=== PATIENT | female | born 1980 | race Caucasian/White ===

== ENCOUNTER 2016-07-30 18:12 | Emergency (ER) | payer BC, OTHER ==
[~2016-07-30] VITALS: Ht 160 cm; Wt 63.0 kg
[~2016-07-30 18:12] MED LIST: ASCO500T3 PO; DIAZ-165 PO; HYDR-5688 PO; LSN/2025 PO; PLEXUS EASE PO
[2016-07-30 18:20] VITALS: TEMP 37.1; Ht 160 cm; Wt 63.0 kg
[2016-07-30 20:13] LABS: BASO % 0.4 %; BASO ABS # 0.03 K/uL (0-0.2); COMPLETE YES; EOS % 3.1 %; HEMATOCRIT 39.4 % (37-47); IG% 0.1 %; LYMPH % 19.4 %; LYMPH ABS # 1.43 K/uL (1.2-3.4); MEAN CELL VOLUME 90.6 fL (80-100); MEAN CORPUSCULAR HEMOGLOBIN 30.3 pg (25-34); MEAN CORPUSCULAR HGB CONC 33.5 g/dl (32-36); MEAN PLATELET VOLUME 10.4 fL (7.4-10.4); MONO % 12.6 %; NEUT % 64.4 %; PLATELET COUNT 230 K/uL (130-400); RED BLOOD COUNT 4.35 M/uL (4.2-5.4); WHITE BLOOD COUNT 7.36 K/uL (4.8-10.8)
[2016-07-30] MEDS ORDERED: HYDROmorphone INJ 1 MG/ML SYR IV STA (20:13)
[2016-07-30] MEDS ORDERED: ONDANSETRON INJ 2 MG/ML 2 ML VIAL IV STA (20:13)
[2016-07-30] MEDS ORDERED: SODIUM CHLORIDE 0.9% 1000ML 1,000 ML IV STA (20:13)
[2016-07-30 20:25] LABS: URINE APPEARANCE CLOUDY (CLEAR); URINE BILIRUBIN NEG (NEG); URINE COLOR YELLOW; URINE EPITHELIAL CELL AUTO >30 /lpf (0-5); URINE NITRITE NEG (NEG); URINE PH 5.5 (4.5-7.5); URINE SPECIFIC GRAVITY 1.029 (1.000-1.030); UROBILINOGEN NEG (NEG); ZZUR CULT IF INDIC CLEAN CATCH YES
[2016-07-30 20:30] LABS: MANUAL MICROSCOPIC REQUIRED? NO; REVIEW REQ? NO
[2016-07-30] MEDS ORDERED: CHOL100010 PO (20:35)
[2016-07-30] MEDS ORDERED: LSN/10125 PO (20:35)
[2016-07-30] MEDS ORDERED: PRZ/40 PO (20:35)
[2016-07-30 20:44] LABS: CALCIUM 8.7 mg/dl (8.5-10.1); CREATININE 0.59 mg/dl (0.60-1.20); POTASSIUM 3.4 mmol/L (3.5-5.1)
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
--- NOTE | 2016-07-30 21:34 | DIAGNOSTIC IMAGING REPORT ---
ABDOMINAL ULTRASOUND, RIGHT UPPER QUADRANT HISTORY: Right upper quadrant abdominal pain.. COMPARISON: Thoracic spine CT 07/08/2015. FINDINGS: Pancreas: The pancreas demonstrates a normal echotexture. The main pancreatic duct is top normal in diameter measuring 3 mm. Liver: The liver is echogenic consistent with fatty change. Gallbladder: No gallbladder wall thickening. No gallstones. CBD: 4 mm. Right kidney: No hydronephrosis. There is thinning of the cortex and increased echogenicity with and the medullary pyramids. There is a 3 mm punctate stone within the kidney. IMPRESSION: 1. Normal gallbladder. No gallstones. 2. Hepatic steatosis. 3. Right renal cortical thinning with increased medullary echogenicity. There is also a 3 mm punctate stone within the right kidney. This raises the possibility of medullary nephrocalcinosis. There is no hydronephrosis. Electronically signed by: Ab Napoles M.D. 07/30/2016 9:33 PM Dictated Date/Time: 07/30/2016 9:30 PM
[2016-07-30 22:18] VITALS: BP 115/72; PULSE 82; O2SAT 99
[2016-07-30] MEDS ORDERED: CEPH500C PO (22:24)
[2016-07-30] MEDS ORDERED: OXYCODONE IR HOME PACK PO ONE (22:30)
[2016-07-30] MEDS ORDERED: CEPHALEXIN MONOHYDRATE 250 MG CAP PO ONE (22:30)
== END 2016-07-30 22:47 | disposition home or self-care (01) ==
LOC: C.EDB 18:13 → C.EDA 22:47
DX: R19.7 Diarrhea, unspecified (principal); R10.11 Right upper quadrant pain; I10 Essential (primary) hypertension; R82.71 Bacteriuria; Z87.891 Personal history of nicotine dependence

== ENCOUNTER 2016-08-20 16:46 | Emergency (ER) | payer BC, OTHER ==
[~2016-08-20] VITALS: Ht 160 cm; Wt 65.5 kg
[~2016-08-20 16:46] MED LIST changes: +CHOL100010 PO; -HYDR-5688 PO; +LSN/10125 PO; -LSN/2025 PO; +PRZ/40 PO
[2016-08-20 16:51] VITALS: TEMP 37; Ht 160 cm; Wt 65.5 kg
[2016-08-20] MEDS ORDERED: CEPHALEXIN 500MG HOME PACK 1 EA BTL PO ONE (17:00)
[2016-08-20] MEDS ORDERED: SULFAMETHOXAZOLE/TRIMETHOPRIM DS 800/160MG TAB PO STA (17:00)
[2016-08-20] MEDS ORDERED: SEPTRA DS HOME PACK 1 EA VIAL PO ONE (17:00)
[2016-08-20] MEDS ORDERED: LIDOCAINE/EPINEPHRINE 1% 20 ML VIAL INFIL STA (17:00)
[2016-08-20] MEDS ORDERED: CEPHALEXIN MONOHYDRATE 250 MG CAP PO STA (17:00)
[2016-08-20] MEDS ORDERED: IBUPROFEN 600 MG TAB ONE (17:01)
[2016-08-20] MEDS ORDERED: IBUPROFEN 600 MG TAB PO STA (17:04)
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
[2016-08-20] MEDS ORDERED: SULF800T23 PO (17:19)
[2016-08-20] MEDS ORDERED: CEPH500C PO (17:19)
[2016-08-20] MEDS ORDERED: MAGN250T3 PO (17:28)
[2016-08-20] MEDS ORDERED: WLLSR100 PO (17:28)
[2016-08-20 17:39] VITALS: BP 143/89; PULSE 87; O2SAT 96
== END 2016-08-20 17:41 | disposition home or self-care (01) ==
LOC: C.EDB 16:47 → C.EDC 17:41
DX: L02.416 Cutaneous abscess of left lower limb (principal); I10 Essential (primary) hypertension; Z87.442 Personal history of urinary calculi; Z87.01 Personal history of pneumonia (recurrent); Z83.3 Family history of diabetes mellitus; Z82.49 Family history of ischemic heart disease and other diseases of the circulatory system; Z87.891 Personal history of nicotine dependence; Z79.899 Other long term (current) drug therapy

== ENCOUNTER 2016-08-22 16:45 | Emergency (ER) | payer BC, OTHER ==
[~2016-08-22] VITALS: Ht 160 cm; Wt 66.0 kg
[~2016-08-22 16:45] MED LIST changes: +CEPH500C PO; -LSN/10125 PO; +MAGN250T3 PO; +SULF800T23 PO; +WLLSR100 PO
[2016-08-22 16:49] VITALS: BP 166/107; PULSE 64; TEMP 37; O2SAT 96; Ht 160 cm; Wt 66.0 kg
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
== END 2016-08-22 17:09 | disposition home or self-care (01) ==
LOC: C.EDB 16:46 → C.EDD 17:09
DX: Z48.00 Encounter for change or removal of nonsurgical wound dressing (principal); L02.416 Cutaneous abscess of left lower limb; Z87.891 Personal history of nicotine dependence; I10 Essential (primary) hypertension; Z87.01 Personal history of pneumonia (recurrent)

== ENCOUNTER 2018-01-02 19:57 | Emergency (ER) | payer BC ==
[~2018-01-02] VITALS: Ht 160 cm; Wt 74.6 kg
[~2018-01-02 19:57] MED LIST changes: +BSP/5 PO; -CEPH500C PO; -CHOL100010 PO; +FLUO60TA4 PO; +LISI-461 PO; +LORA-741 PO; -PRZ/40 PO; -SULF800T23 PO; -WLLSR100 PO
[2018-01-02 20:00] VITALS: Ht 160 cm; Wt 74.6 kg
[2018-01-02] MEDS ORDERED: MoRPHine SULFATE 4 MG/ML 1 ML CARP\\VIAL IV STA (20:09)
[2018-01-02] MEDS ORDERED: ONDANSETRON INJ 2 MG/ML 2 ML VIAL IV STA (20:09)
[2018-01-02] MEDS ORDERED: CHOL100010 PO (20:35)
[2018-01-02 20:40] LABS: BASO % 0.3 %; BASO ABS # 0.03 K/uL (0-0.2); EOS % 2.6 %; EOS ABS # 0.24 K/uL (0-0.5); HEMATOCRIT 39.3 % (37-47); HEMOGLOBIN 13.3 g/dL (12.0-16.0); IG# 0.03 K/uL (0.00-0.02); LYMPH % 30.5 %; LYMPH ABS # 2.85 K/uL (1.2-3.4); MEAN CELL VOLUME 90.3 fL (80-100); MEAN CORPUSCULAR HEMOGLOBIN 30.6 pg (25-34); MEAN CORPUSCULAR HGB CONC 33.8 g/dl (32-36); MEAN PLATELET VOLUME 10.4 fL (7.4-10.4); MONO % 7.3 %; MONO ABS # 0.68 K/uL (0.11-0.59); NEUT ABS # 5.52 K/uL (1.4-6.5); PLATELET COUNT 271 K/uL (130-400); RED CELL DISTRIBUTION WIDTH CV 12.8 % (11.5-14.5); RED CELL DISTRIBUTION WIDTH SD 42.2 fL (36.4-46.3); WHITE BLOOD COUNT 9.35 K/uL (4.8-10.8)
[2018-01-02] MEDS ORDERED: BUPR100T8 PO (20:46)
[2018-01-02] MEDS ORDERED: VLT/75 PO (20:46)
[2018-01-02] MEDS ORDERED: LISI-461 PO (20:46)
[2018-01-02] MEDS ORDERED: RANI150T2 PO (20:46)
[2018-01-02] MEDS ORDERED: PRZ/40 PO (20:46)
[2018-01-02] MEDS ORDERED: BSP/10 PO (20:46)
[2018-01-02] MEDS ORDERED: CYCL10TA7 PO (20:46)
[2018-01-02] MEDS ORDERED: FLUO20CA36 PO (20:46)
[2018-01-02] MEDS ORDERED: ASCO100061 PO (20:50)
[2018-01-02 20:53] LABS: ALBUMIN 4.3 gm/dl (3.4-5.0); ALKALINE PHOSPHATASE 113 U/L (45-117); ALT/SGPT 38 U/L (12-78); AST/SGOT 20 U/L (15-37); BLOOD UREA NITROGEN 13 mg/dl (7-18); CALCIUM 9.2 mg/dl (8.5-10.1); CARBON DIOXIDE 24 mmol/L (21-32); CREATININE 0.76 mg/dl (0.60-1.20); GLUCOSE 87 mg/dl (70-99); LIPASE 127 U/L (73-393); POTASSIUM 3.8 mmol/L (3.5-5.1); SODIUM 136 mmol/L (136-145)
[2018-01-02] MEDS ORDERED: PEDICHW50 PO (20:56)
--- NOTE | 2018-01-02 21:35 | DIAGNOSTIC IMAGING REPORT ---
ABDOMINAL ULTRASOUND, RIGHT UPPER QUADRANT HISTORY: Abdominal pain. COMPARISON: Right upper quadrant ultrasound December 11, 2017. FINDINGS: Liver is sonographically normal. There is no biliary ductal dilatation. No gallstones are identified. The gallbladder is normal. The pancreatic body is normal. The head and tail are partially obscured. There is no right hydronephrosis. Increased echogenicity of the right renal pyramids is unchanged and may reflect medullary nephrocalcinosis. IMPRESSION: 1. No gallstones or biliary ductal dilatation. 2. No hydronephrosis. 3. Increased echogenicity of the right renal pyramids is unchanged and may reflect medullary nephrocalcinosis. Electronically signed by: Erick Davis M.D. 01/02/2018 9:33 PM Dictated Date/Time: 01/02/2018 9:31 PM
[2018-01-02] MEDS ORDERED: LIDOCAINE HCL 2% VISC SOLN 20 ML UDC PO STA (21:53)
[2018-01-02] MEDS ORDERED: ALUMINUM/MAGNESIUM SUSP 30 ML UDC PO STA (21:53)
[2018-01-02] MEDS ORDERED: FAMOTIDINE 20 MG TAB PO ONE (22:00)
[2018-01-02] MEDS ORDERED: OPTIRAY 320 IV PRN (22:45)
[2018-01-03] MEDS ORDERED: SUCRALFATE 1 GM/10 ML UDC PO STA (00:13)
[2018-01-03] MEDS ORDERED: PRT/20 PO (01:08)
[2018-01-03 01:20] VITALS: BP 114/74; PULSE 84; TEMP 36.8; O2SAT 98
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
--- NOTE | 2018-01-03 06:49 | DIAGNOSTIC IMAGING REPORT ---
CT ABD/PELVIS IV AND ORAL CONT CLINICAL HISTORY: Right-sided abdominal pain COMPARISON STUDY: December 2007 TECHNIQUE: Following the IV administration of 93 mL of Optiray-320, CT scan of the abdomen and pelvis was performed from the lung bases to the proximal femurs. Images are reviewed in the axial, sagittal, and coronal planes. IV contrast was administered without complication. A dose lowering technique was utilized adhering to the principles of ALARA. CT DOSE: 385.73 mGy.cm FINDINGS: Lower chest: There is left lower lobe atelectasis/scarring Liver: The contrast-enhanced liver is normal in size, contour, and attenuation. There is no intrahepatic biliary ductal dilatation. The hepatic veins and portal veins are patent. Gallbladder: Unremarkable. Spleen: Normal in size and attenuation. Pancreas: Unremarkable. Adrenal glands: Unremarkable. Kidneys: There is a punctate nonobstructing right renal calculus. There is a 1 cm right renal hypodensity likely representing a cyst. There is no hydronephrosis. Bowel: There are no transition zones indicate bowel obstruction. The appendix appears normal. There is no acute diverticulitis. There is no pathologic colonic wall thickening. Peritoneum: There is no intraperitoneal free air or abdominal ascites. Vasculature: The abdominal aorta is normal in course and caliber. Adenopathy: None. Pelvic viscera: The bladder, and pelvic viscera are unremarkable. Skeletal structures: There are postsurgical changes of thoracolumbar spinal rodding. IMPRESSION: 1. No evidence of bowel obstruction. No evidence of free air 2. Normal appendix. No evidence of acute diverticulitis 3. No evidence of pathologic colonic wall thickening 4. Punctate nonobstructing right renal calculus Electronically signed by: Rajesh Rodríguez M.D. 01/03/2018 6:48 AM Dictated Date/Time: 01/03/2018 6:45 AM
== END 2018-01-03 01:27 | disposition home or self-care (01) ==
LOC: C.EDB 19:59
DX: R10.11 Right upper quadrant pain (principal); K82.9 Disease of gallbladder, unspecified; I10 Essential (primary) hypertension; Z87.891 Personal history of nicotine dependence; Z79.899 Other long term (current) drug therapy; Z88.6 Allergy status to analgesic agent

== ENCOUNTER 2020-06-05 18:08 | Observation (INO) ==
[2020-06-05 20:24] LABS: Basophils # (auto) 0.02 K/uL (0-0.2); Basophils % (auto) 0.2 %; Eosinophils # (auto) 0.26 K/uL (0-0.5); Eosinophils % (auto) 2.9 %; Hematocrit (blood only) 39.4 % (37-47); Hemoglobin 13.2 g/dL (12.0-16.0); Immature Granulocytes # (auto) 0.02 K/uL (0.00-0.02); Immature Granulocytes % (auto) 0.2 %; Lymphocytes # (auto) 2.87 K/uL (1.2-3.4); Lymphocytes % (auto) 32.4 %; Mean Corpuscular Hemoglobin 30.2 pg (25-34); Mean Corpuscular Hgb Conc 33.5 g/dL (32-36); Mean Corpuscular Volume 90.2 fL (80-100); Mean Platelet Volume 10.9 fL (7.4-10.4); Monocytes # (auto) 0.64 K/uL (0.11-0.59); Monocytes % (auto) 7.2 %; Neutrophils # (auto) 5.05 K/uL (1.4-6.5); Neutrophils % (auto) 57.1 %; Platelet Count 340 K/uL (130-400); RDW Coefficient of Variation 12.9 % (11.5-14.5); RDW Standard Deviation 42.4 fL (36.4-46.3); Red Blood Count 4.37 M/uL (4.2-5.4); White Blood Count 8.86 K/uL (4.8-10.8)
--- NOTE | 2020-06-05 20:27 | XRay Report ---
XR chest 1V portable CLINICAL HISTORY: Chest Pain COMPARISON STUDY: Chest radiograph February 24, 2019. FINDINGS: Lung volumes are normal. Lungs are clear. There is no pneumothorax or pleural effusion. Car diac size is stable. Mediastinal contours are normal. There is no evidence for pulmonary edema. Posto perative findings within the spine are noted. IMPRESSION: No acute cardiopulmonary findings. No change in appearance of the chest. ACT 112: Negative or not required by law. Electronically signed by: Erick Davis M.D. 06/05/2020 8:25 PM
--- NOTE | 2020-06-05 20:57 | Emergency Department Note ---
Impression & Plan Breathlessness, Chest pain ED Provider Note Provider: Keith Tirado MD DATE OF SERVICE:06/05/2020 CHIEF COMPLAINT: Shortness breath, chest pain HISTORY OF PRESENT ILLNESS: Patient is a 39-year-old female history of nonischemic cardiomyopathy, hypertension presenting today stating over last to 3 weeks she is had worsening shortness of breath. States he is a chronic history of chest discomfort without radiation. Patient states her been getting worse with exertion and feels like when she had heart failure before. Patient states he does follow [facility] [place] [facility] and her heart was doing better. Denies significant leg swelling. Denies recent travel. Denies fever or URI symptoms. Patient states he had a Covid test several weeks ago. Patient denies significant abdominal pain currently or nausea. REVIEW OF SYSTEMS: A total of 10 review of systems was obtained and negative except as stated above in the HPI. PAST MEDICAL HISTORY: As noted above MEDICATIONS: Reviewed home medications. SOCIAL HISTORY: Former smoker, PHYSICAL EXAM: GENERAL: alert and oriented in no acute distress on stretcher Head: normocephalic and atraumatic EYES: No injection, discharge or icterus. NECK: Trachea midline. LUNGS: Airway patent. No retractions. Breath sounds clear but the patient is tachypneic and short of breath while talking. HEART: Regular rate and rhythm. No chest wall tenderness ABDOMEN: Soft and non-tender, without guarding or rebound. SKIN: Acyanotic, warm, dry, without rashes EXTREMITIES: Without swelling, tenderness or deformity NEUROLOGICAL: No focal deficits. No aphasia. No facial droop or slurred speech. EK bpm normal sinus rhythm. No PVC or PAC. No acute ST segment elevation. There is inferior lateral T wave inversions that appear new compared to previous from February [id number]. Normal QTC. CONTINUOUS CARDIAC MONITORING: was ordered and showed a heart rate of 62 bpm in normal sinus rhythm Patient's laboratory studies and imaging reviewed. Differential includes Cardiac ischemia, aortic dissection, pulmonary embolism, pneumothorax, pneumonia, pericarditis, myocarditis, esophageal rupture, GERD, cholecystitis, pancreatitis, musculoskeletal, as well as other pathologies. IMPRESSION/MEDICAL DECISION MAKING: Patient presents complaining of some chronic chest discomfort but worsening shortness of breath and dyspnea on exertion. No significant leg swelling appreciated. Chest x-ray has significant evidence of pneumonia or fluid overload per radiology report. Patient does significantly from review of prior medical records have history of nonischemic cardiomyopathy of unknown origin. Previously had improvement and follows with Dr. Loya of cardiology. Covid testing was completed but does not sound that infectious. Denies fevers. No significant abdominal tenderness. D-dimer sent to help exclude PE however was positive and proceed with a CT of the chest to exclude PE. Per stat read no acute evidence of this. Covid testing was negative here today. No significant leukocytosis or anemia on laboratory studies. Does not seem that consistent with an acute infectious etiology. EKG is somewhat concerning with appearance of new diffuse inferior lateral T wave inversions. Troponin is negative. No evidence of significant liver or pancreas dysfunction or electrolyte abnormality. The patient is saturating well on room air she is tachypneic and audibly short of breath when talking. Due to concerns regarding possible worsening cardiac status given this worsening of her breathing and history. Given this discussed the patient further evaluation here in the hospital. DIAGNOSIS: Shortness of breath, chest pain DISPOSITION: Hospitalist will evaluate Patient was agreeable with this plan. Preliminary Findings Only See Final Report For Complete Findings CTA CHEST: No pulmonary embolus. No effusion or consolidation. Mild atelectasis/scarring in the left lung base. Mild cardiomegaly Spinal fusion. Hardware in the cervical and thoracic spine. Surgical changes involving the left chest wall Small low-attenuation focus in the left lobe of the thyroid gland. Cholecystectomy clips Radiologist: Billy Gómez M.D. Study ready at 23:09 and initial results transmitted at 23:17 Past Med/Surg History Medical History (Updated 06/05/20 @ 21:55 by Keith Tirado M.D.) Contusion of multiple sites Fall History of diet controlled gestational diabetes mellitus (GDM) Hypertension Kidney stone Lumbar strain Pneumonia Family History Other No significant family history Social History Smoking Status: Never smoker Second Hand Exposure: No; Hx Alcohol Use: Yes Alcohol type: beer Hx Substance Use: No Preferred Language: Portuguese marital status: Single Current Living Situation: Spouse and Family current occupational status: employed current occupation: [employer] Feels Safe at Home: Yes Allergies Allergies Allergy/AdvReac Type Severity Reaction Status Date / Time propoxyphene Allergy Unknown ALLERGY TO Verified 06/05/20 22:39 DARVOCET- CAN TAKE APAP Home Meds Home Medications Medication Instructions Recorded Confirmed cholecalciferol (vitamin D3) 1,000 unit PO DAILY 02/14/19 06/05/20 [Vitamin D3] magnesium 250 mg PO DAILY 02/14/19 06/05/20 pediatric multivitamin no.76 1 tab PO DAILY 02/14/19 06/05/20 [Flintstones Complete] albuterol sulfate 2 puff INHALATION Q4 PRN 06/05/20 06/05/20 ascorbic acid (vitamin C) [Vitamin 1 g PO DAILY 06/05/20 06/05/20 C] bupropion HCl [Wellbutrin SR] 100 mg PO BID 06/05/20 06/05/20 digoxin [Lanoxin] 125 mcg PO DAILY 06/05/20 06/05/20 fluoxetine [Prozac] 60 mg PO DAILY 06/05/20 06/05/20 furosemide [Lasix] 20 mg PO DAILY 06/05/20 06/05/20 hydrocortisone acetate 25 mg [place] BID PRN 06/05/20 06/05/20 lisinopril 2.5 mg PO DAILY 06/05/20 06/05/20 metoprolol succinate [Toprol XL] 50 mg PO DAILY 06/05/20 06/05/20 spironolactone [Aldactone] 12.5 mg PO DAILY 06/05/20 06/05/20 triamcinolone acetonide 1 applic TOPICAL BID PRN 06/05/20 06/05/20 Results & Data (ED) Vital Signs Vital Signs - 24 hr 06/05/20 18:10 06/05/20 20:01 06/05/20 20:16 Temperature 36.5 C Temperature Source Temporal Artery Scan Pulse Rate 65 62 59 L Pulse Rate from SpO2 Sensor 64 59 L Respiratory Rate 24 21 20 Respiratory Effort / Characteristics Non-Labored Spontaneous Respiratory Depth Normal Blood Pressure 144/88 H 107/80 116/70 Blood Pressure Mean 106 89 84 Blood Pressure Position Sitting Pulse Oximetry 100 100 100 Oxygen Delivery Method Room Air Room Air Room Air Sepsis Recent Fever Within 48 Hours No Sepsis New/Unexplained Change in Mental Status No Sepsis Action Taken by Nursing No Action Required 06/05/20 20:29 06/05/20 21:00 12/28/20 21:30 Temperature Temperature Source Pulse Rate 76 61 Pulse Rate from SpO2 Sensor 70 61 Respiratory Rate 16 17 Respiratory Effort / Characteristics Respiratory Depth Blood Pressure 118/73 115/73 Blood Pressure Mean 78 78 Blood Pressure Position Pulse Oximetry 100 97 99 Oxygen Delivery Method Room Air Room Air Room Air Sepsis Recent Fever Within 48 Hours Sepsis New/Unexplained Change in Mental Status Sepsis Action Taken by Nursing 06/05/20 21:43 06/05/20 22:00 06/05/20 22:30 Temperature Temperature Source Pulse Rate 73 64 Pulse Rate from SpO2 Sensor 72 64 Respiratory Rate 19 14 Respiratory Effort / Characteristics Respiratory Depth Blood Pressure 128/76 107/74 Blood Pressure Mean 91 82 Blood Pressure Position Pulse Oximetry 98 99 98 Oxygen Delivery Method Room Air Room Air Room Air Sepsis Recent Fever Within 48 Hours Sepsis New/Unexplained Change in Mental Status Sepsis Action Taken by Nursing Laboratory Data Result diagrams: 06/05/20 20:10 06/05/20 21:29 Lab Results 06/05/20 06/05/20 06/05/20 Range/Units 20:10 20:10 20:10 WBC 8.86 (4.8-10.8) K/uL RBC 4.37 (4.2-5.4) M/uL Hgb 13.2 (12.0-16.0) g/dL Hct 39.4 (37-47) % MCV 90.2 (80-100) fL MCH 30.2 (25-34) pg MCHC 33.5 (32-36) g/dL RDW Std Deviation 42.4 (36.4-46.3) fL RDW Coeff of Yaz 12.9 (11.5-14.5) % Plt Count 340 (130-400) K/uL MPV 10.9 H (7.4-10.4) fL Immature Gran % (Auto) 0.2 % Neut % (Auto) 57.1 % Lymph % (Auto) 32.4 % [place] % (Auto) 7.2 % Eos % (Auto) 2.9 % Baso % (Auto) 0.2 % Neut # (Auto) 5.05 (1.4-6.5) K/uL Lymph # (Auto) 2.87 (1.2-3.4) K/uL [place] # (Auto) 0.64 H (0.11-0.59) K/uL Eos # (Auto) 0.26 (0-0.5) K/uL Baso # (Auto) 0.02 (0-0.2) K/uL Immature Gran # (Auto) 0.02 (0.00-0.02) K/uL PT Cancelled INR Cancelled APTT Cancelled PTT Ratio Cancelled D-Dimer Cancelled Sodium (136-145) mmol/L Potassium (3.5-5.1) mmol/L Chloride (98-107) mmol/L Carbon Dioxide (21-32) mmol/L Anion Gap (3-11) BUN (7-18) mg/dl Creatinine (0.6-1.2) mg/dl Est Cr Clr Drug Dosing ml/min Est GFR ( Amer) Est GFR (Non-Af Amer) BUN/Creatinine Ratio (10-20) Glucose (70-99) mg/dl Calcium (8.5-10.1) mg/dl Total Bilirubin (0.2-1) mg/dl AST (15-37) U/L ALT (12-78) U/L Alkaline Phosphatase (45-117) U/L Troponin I (0-0.045) ng/ml NT-Pro-B Natriuret Pep (0-450) pg/ml Total Protein (6.4-8.2) gm/dl Albumin (3.4-5.0) gm/dl Globulin (2.5-4.0) gm/dl Albumin/Globulin Ratio (0.9-2) Lipase (73-393) U/L COVID-19 Eval [facility] SARS-CoV-2, RNA, NAAT (NEGATIVE) 06/05/20 06/05/20 06/05/20 Range/Units 20:10 21:29 21:29 WBC (4.8-10.8) K/uL RBC (4.2-5.4) M/uL Hgb (12.0-16.0) g/dL Hct (37-47) % MCV (80-100) fL MCH (25-34) pg MCHC (32-36) g/dL RDW Std Deviation (36.4-46.3) fL RDW Coeff of Yaz (11.5-14.5) % Plt Count (130-400) K/uL MPV (7.4-10.4) fL Immature Gran % (Auto) % Neut % (Auto) % Lymph % (Auto) % [place] % (Auto) % Eos % (Auto) % Baso % (Auto) % Neut # (Auto) (1.4-6.5) K/uL Lymph # (Auto) (1.2-3.4) K/uL [place] # (Auto) (0.11-0.59) K/uL Eos # (Auto) (0-0.5) K/uL Baso # (Auto) (0-0.2) K/uL Immature Gran # (Auto) (0.00-0.02) K/uL PT 10.7 INR 1.0 APTT 31.9 H PTT Ratio 1.1 D-Dimer 1840 H* Sodium 139 (136-145) mmol/L Potassium 3.7 (3.5-5.1) mmol/L Chloride 106 (98-107) mmol/L Carbon Dioxide 26 (21-32) mmol/L Anion Gap 7.0 (3-11) BUN 13 (7-18) mg/dl Creatinine 0.71 (0.6-1.2) mg/dl Est Cr Clr Drug Dosing 106.2 ml/min Est GFR ( Amer) 126.1 Est GFR (Non-Af Amer) 108.8 BUN/Creatinine Ratio 17.9 (10-20) Glucose 93 (70-99) mg/dl Calcium 8.9 (8.5-10.1) mg/dl Total Bilirubin 0.2 (0.2-1) mg/dl AST 12 L (15-37) U/L ALT 22 (12-78) U/L Alkaline Phosphatase 98 (45-117) U/L Troponin I < 0.015 (0-0.045) ng/ml NT-Pro-B Natriuret Pep 27 (0-450) pg/ml Total Protein 7.7 (6.4-8.2) gm/dl Albumin 3.7 (3.4-5.0) gm/dl Globulin 4.0 (2.5-4.0) gm/dl Albumin/Globulin Ratio 0.9 (0.9-2) Lipase 120 (73-393) U/L COVID-19 Eval Order SARS-CoV-2, RNA, NAAT NEGATIVE (NEGATIVE) Administered Medications Discontinued Medications Ioversol (Optiray 320 125ml) 118 ml IV ONCE ONE Stop: 06/05/20 22:46 Last Admin: 06/05/20 22:46 Dose: 1 ml Documented by: [id number] Discharge Plan Visit Data Chief Complaint: Chest Pain Stated Complaint: CHEST PAIN, SOB, HEART FAILURE ED Provider: Keith Tirado Discharge Problem: Breathlessness, Chest pain Patient Disposition: Being Evaluated by Hospitalist Forms Stand Alone Forms: [facility] Prescriptions Prescriptions: No Action magnesium 250 mg Tablet 250 mg PO DAILY RF: 0 cholecalciferol (vitamin D3) [Vitamin D3] 1,000 unit Tablet,Chewable 1,000 unit PO DAILY RF: 0 Flintstones Complete Tablet,Chewable 1 tab PO DAILY RF: 0 ascorbic acid (vitamin C) [Vitamin C] 1,000 mg Tablet 1 g PO DAILY RF: 0 spironolactone [Aldactone] 25 mg tablet 12.5 mg PO DAILY RF: 0 bupropion HCl [Wellbutrin SR] 100 mg tablet sustained-release 12 hr 100 mg PO BID RF: 0 hydrocortisone acetate 25 mg Suppository 25 mg [place] BID PRN (Reason: Hemorrhoids) RF: 0 digoxin [Lanoxin] 125 mcg (0.125 mg) tablet 125 mcg PO DAILY RF: 0 furosemide [Lasix] 20 mg tablet 20 mg PO DAILY RF: 0 metoprolol succinate [Toprol XL] 25 mg tablet extended release 24 hr 50 mg PO DAILY RF: 0 triamcinolone acetonide 0.1 % Lotion 1 applic TOPICAL BID PRN (Reason: break outs) RF: 0 albuterol sulfate 90 mcg/actuation HFA aerosol inhaler 2 puff INHALATION Q4 PRN (Reason: Shortness Of Breath Or Wheezing) RF: 0 fluoxetine [Prozac] 20 mg capsule 60 mg PO DAILY RF: 0 lisinopril 2.5 mg tablet 2.5 mg PO DAILY RF: 0 Referrals Referrals: Vika Daniels MD [Primary Care Provider] - Discharge Problem: Chest pain Qualifiers: Chest pain type: unspecified Qualified Code(s): R07.9 - Chest pain, unspecified
[2020-06-05 21:54] LABS: Partial Thromboplastin Ratio 1.1; Partial Thromboplastin Time 31.9 Seconds (21.0-31.0); Prothrombin Time 10.7 Seconds (9.0-12.0)
[2020-06-05 21:55] LABS: D Dimer 1840 ug/L FEU (0-500)
[2020-06-05 21:59] LABS: Alanine Aminotransferase 22 U/L (12-78); Albumin Level 3.7 gm/dl (3.4-5.0); Aspartate Aminotransferase 12 U/L (15-37); BUN Creatinine Ratio 17.9 (10-20); Blood Urea Nitrogen 13 mg/dl (7-18); Calcium 8.9 mg/dl (8.5-10.1); Carbon Dioxide 26 mmol/L (21-32); Chloride 106 mmol/L (98-107); Creatinine Clr Calc Pharmacy 106.2 ml/min; Est GFR (African American) 126.1; Est GFR (Non-African American) 108.8; Glucose 93 mg/dl (70-99); Lipase 120 U/L (73-393); Potassium 3.7 mmol/L (3.5-5.1); Sodium 139 mmol/L (136-145)
[2020-06-05 22:04] LABS: Albumin Globulin Ratio 0.9 (0.9-2); Alkaline Phosphatase 98 U/L (45-117); Bilirubin,Total 0.2 mg/dl (0.2-1); NT Pro B Type Natriuretic Pept 27 pg/ml (0-450); Total Protein 7.7 gm/dl (6.4-8.2); Troponin I < 0.015 ng/ml (0-0.045)
[2020-06-05] MEDS ORDERED: OPTIRAY 320 125ml IV ONE (22:45)
[2020-06-05] MEDS ORDERED: METOCLOPRAMIDE HCL INJ 5 MG/ML 2 ML VIAL IV STA (23:21)
[2020-06-05] MEDS ORDERED: diphenhydrAMINE 50 MG/ML VIAL IV STA (23:21)
--- NOTE | 2020-06-06 02:57 | History and Physical Report ---
DATE OF ADMISSION: 06/06/2020 CHIEF COMPLAINT: Chest pain and shortness of breath. HISTORY OF PRESENT ILLNESS: This is a 39-year-old female with past medical history significant for nonischemic cardiomyopathy, hypertension, scoliosis, neurofibromatosis, kyphosis, osteoarthritis, pseudoarthrosis of cervical spine, retinal edema, history of spinal fusion, history of breast cancer in sister, major depression, presents with chest pain and shortness of breath. The patient's chest pain is going for a long time, it is on and off, it is on the left side of the chest, sometimes will radiate into the shoulder, pressure like feeling,5/10 severity. She was diagnosed with nonischemic cardiomyopathy in 02/2019 with EF of 20-25% and cardiac cath was fine and she had a cardiac MRI done in [place], later which showed near normalization EF with 52% EF and she had another echocardiogram done in 10/2019 which shows EF of 40-45%, left ventricle is moderately dilated.Last few days again she is getting short of breath, walking few steps making her short of breath and she felt like similar to prior to diagnosis of cardiomyopathy which prompted her to come to the ER. She has some mild cough. Denies any fever, chills. No nausea, no vomiting, no abdominal pain. Constipated. Denies any blood in stool or black stools. Normal bladder movements. No loss of sense of smell or taste. No fever, no chills. Currently, no headache, no blurred vision, no earache, no runny nose, no sore throat. Appetite is okay. ALLERGIES: PROPOXYPHENE. PAST MEDICAL HISTORY: As mentioned above. PAST SURGICAL HISTORY: , cardiac catheterization, dental surgery, had 5 back surgeries from 1997 to 1999, laparoscopic cholecystectomy, ligation of oviducts, neck spine fusion surgery. MEDICATIONS: The patient currently on albuterol 2 puffs inhalation q. 4 hours p.r.n., ascorbic acid 1 gram p.o. daily, Wellbutrin 100 mg p.o. b.i.d., vitamin D 1000 units p.o. daily, digoxin 125 mcg p.o. daily, Prozac 60 mg p.o. daily, Lasix 20 mg p.o. daily, hydrocortisone 25 mg per rectal b.i.d. p.r.n., lisinopril 2.5 mg p.o. daily, magnesium 250 mg p.o. daily, Toprol-XL 50 mg p.o. daily, pediatric multivitamins 1 tablet daily, spironolactone 12.5 mg p.o. daily, triamcinolone 1 application topically b.i.d. p.r.n. FAMILY HISTORY: Significant for sister breast cancer. Father has hyperlipidemia, hypertension, heart disorder, [place] at age of 52. Paternal grandfather had lung cancer. Paternal grandmother had gastrointestinal disorder. Maternal grandfather had diabetes, maternal grandmother had diabetes. SOCIAL HISTORY: Former smoker, quit in 2017. Alcohol occasional. No drug use. REVIEW OF SYMPTOMS: As per HPI. Rest of the review of symptoms negative. PHYSICAL EXAMINATION: GENERAL: The patient is of moderate built, not in acute distress. VITAL SIGNS: Temperature 36.5, pulse 79, respiratory rate 22, blood pressure 129/62, oxygen 98% on room air. HEENT: Pupils equal, round, reactive to light. Oral mucosa moist. NECK: No neck masses seen. No JVD seen. CARDIOVASCULAR: S1, S2 heard, regular rate and rhythm, no murmur, no gallop. RESPIRATORY SYSTEM: Normal AP diameter. No accessory muscle use. No wheezing, no crackles. ABDOMEN: Soft, bowel sounds present, nontender. No distention. CENTRAL NERVOUS SYSTEM: Cranial nerves II-XII grossly intact. Nonfocal. EXTREMITIES: No edema, no erythema. LABORATORY DATA: WBC 8.8, hemoglobin 13.2, hematocrit 39.4, platelets 340. PT 10.7, INR 1, APTT 31.9. D-dimer 1840. Sodium 139, potassium 3.7, chloride 106, bicarbonate 26, BUN 13, creatinine 0.7, serum glucose 93, calcium 8.9, total bilirubin 0.2, AST 12, ALT 22, alkaline phosphatase 98. Troponin I less than 0.015. BNP 27. Lipase 120. SARS-CoV-2 RNA negative. IMAGING: Chest x-ray: No acute cardiopulmonary findings. As per the ER report, the patient's CT of the chest was done which was unremarkable, follow the final report. EKG: Normal sinus rhythm with rate of 60. T-wave inversions in inferior and anterolateral leads. ASSESSMENT AND PLAN: A 39-year-old female with nonischemic cardiomyopathy, presents with chest pain, shortness of breath. 1. Chest pain, shortness of breath. New EKG shows T-wave inversions in inferior and anterolateral leads. The patient has hx of non ischemic cardiomyopathy on echocardiogram in February 2019 showed EF of 20-25%. Later Cardiac MRI shows EF of 52, and then echo in October 2019, showed EF of 40-45%. The patient is on diuretics, spironolactone, Lasix. On lisinopril and Toprol-XL and digoxin. Currently not in volume overload, but patient's symptoms similar to prior, so we will observe in the hospital. We will keep n.p.o., follow serial enzymes, echocardiogram, continue home medications and consult cardiology in a.m. for further recommendation. Monitor in the tele. 2. Hypertension. Continue lisinopril, Toprol-XL, diuretic. We will monitor the blood pressure. 3. Depression. Continue Wellbutrin and Prozac. 4. Deep venous thrombosis prophylaxis: SCDs for now. DISPOSITION: Closely observe in the tele floor. Level 1 full code. MTDD
[2020-06-06] MEDS ORDERED: ACETAMINOPHEN 325 MG TAB PO PRN (03:07)
[2020-06-06] MEDS ORDERED: HYDROCORTISONE ACETATE 25 MG SUPP PR PRN (03:07)
[2020-06-06] MEDS ORDERED: ALBUTEROL HFA 8 GM INHALER INH PRN (03:07)
[2020-06-06] MEDS ORDERED: NITROGLYCERIN SL 0.4 MG/TAB TAB SL PRN (03:07)
[2020-06-06] MEDS ORDERED: TRIAMCINOLONE ACET 0.1% CR 15 GM TUBE EXT PRN (04:28)
[2020-06-06 06:15] LABS: Basophils # (auto) 0.02 K/uL (0-0.2); Basophils % (auto) 0.3 %; Eosinophils # (auto) 0.24 K/uL (0-0.5); Eosinophils % (auto) 3.2 %; Hematocrit (blood only) 39.9 % (37-47); Immature Granulocytes # (auto) 0.01 K/uL (0.00-0.02); Immature Granulocytes % (auto) 0.1 %; Lymphocytes # (auto) 2.51 K/uL (1.2-3.4); Lymphocytes % (auto) 33.2 %; Mean Corpuscular Hemoglobin 29.6 pg (25-34); Mean Corpuscular Hgb Conc 32.6 g/dL (32-36); Mean Corpuscular Volume 90.9 fL (80-100); Mean Platelet Volume 10.4 fL (7.4-10.4); Monocytes # (auto) 0.71 K/uL (0.11-0.59); Monocytes % (auto) 9.4 %; Neutrophils # (auto) 4.08 K/uL (1.4-6.5); Neutrophils % (auto) 53.8 %; Platelet Count 310 K/uL (130-400); RDW Coefficient of Variation 12.7 % (11.5-14.5); RDW Standard Deviation 42.2 fL (36.4-46.3); Red Blood Count 4.39 M/uL (4.2-5.4); White Blood Count 7.57 K/uL (4.8-10.8)
[2020-06-06 06:35] LABS: Blood Urea Nitrogen 13 mg/dl (7-18); Calcium 8.7 mg/dl (8.5-10.1); Carbon Dioxide 26 mmol/L (21-32); Chloride 107 mmol/L (98-107); Creatinine Clr Calc Pharmacy 101.9 ml/min; Est GFR (Non-African American) 103.5; Glucose 90 mg/dl (70-99); Magnesium 2.4 mg/dl (1.8-2.4); Potassium 3.9 mmol/L (3.5-5.1); Sodium 138 mmol/L (136-145)
[2020-06-06 06:38] LABS: Troponin I < 0.015 ng/ml (0-0.045)
--- NOTE | 2020-06-06 07:22 | CT Scan Report ---
CT ANGIOGRAM OF THE CHEST CLINICAL HISTORY: Dyspnea. Elevated d-dimer. Atypical chest pain. COMPARISON STUDY: Chest x-ray dated 06/05/2020. Chest CT dated 02/14/2019. TECHNIQUE: Following the IV administration of 118 cc of Optiray 320, CT angiogram of the chest was pe rformed from the upper abdomen to the thoracic inlet utilizing the pulmonary embolus protocol. Images are reviewed in the axial, sagittal, and coronal planes. 3-D MIPS images are created and assessed. I V contrast was administered without complication. A dose lowering technique was utilized adhering to the principles of ALARA. The examination is degraded by streak artifact from spinal rods. CT DOSE: 405.39 mGy.cm FINDINGS: Thyroid: Imaged portions of the thyroid gland are normal in size and attenuation. Low-attenuation nod ules measure up to 10 mm. Thoracic aorta: The thoracic aorta is normal in caliber and demonstrates standard 3-vessel arch anato my. No dissection is seen. Pulmonary vasculature: The pulmonary trunk is normal in caliber. There are no filling defects identif ied in main, lobar, or segmental pulmonary branches to suggest pulmonary embolus. Heart: The heart is normal in size and without pericardial effusion. Lungs and pleural spaces: There is left basilar scarring/atelectasis. No airspace consolidation is se en typical for pneumonia and there is no pleural effusion. The trachea and central airways are clear. Mediastinum: There is no mediastinal lymphadenopathy. Cynthia: Clear. Axillae: There is no axillary lymphadenopathy. Upper abdomen: Partially visualized upper abdominal viscera is within normal limits. Skeletal structures: Fusion hardware is seen in the lower cervical spine. Extensive postoperative [place] nge and spinal rods are seen throughout the thoracic spine. Postoperative change is noted in the left -sided ribs. No lytic or blastic bony lesions are seen. IMPRESSION: 1. There is no evidence of pulmonary embolus in the main, lobar, or segmental pulmonary arteries. 2. There is no airspace consolidation or pleural effusion. 3. There is a 10 mm low-attenuation nodule in the left lobe of the thyroid. This is new from 02/14/2019 . Follow-up with a nonemergent thyroid ultrasound is recommended for further assessment. ACT 112: Negative or not required by law. Electronically signed by: Broderick Ackerman M.D. 06/06/2020 7:21 AM
[2020-06-06 07:49] VITALS: TEMP 98.1
[2020-06-06] MEDS ORDERED: FUROSEMIDE 20 MG TAB PO SCH (09:00)
[2020-06-06] MEDS ORDERED: CHOLECALCIFEROL 1,000 UNITS 25 MCG TAB PO SCH (09:00)
[2020-06-06] MEDS ORDERED: lisinopril 2.5 MG TAB PO SCH (09:00)
[2020-06-06] MEDS ORDERED: buPROPion SR 100 MG TABCR PO SCH (09:00)
[2020-06-06] MEDS ORDERED: FLUoxetine HCL 20 MG CAP PO SCH (09:00)
[2020-06-06] MEDS ORDERED: SPIRONOLACTONE 12.5 MG TAB PO SCH (09:00)
[2020-06-06] MEDS ORDERED: METOPROLOL SUCC 50MG EXT REL TAB PO SCH (09:00)
[2020-06-06] MEDS ORDERED: MULTIVITAMIN CHEWABLE TAB PO SCH (09:00)
[2020-06-06] MEDS ORDERED: ASCORBIC ACID 500 MG TAB PO SCH (09:00)
[2020-06-06] MEDS ORDERED: MAGNESIUM OXIDE 400 MG TAB PO SCH (09:00)
--- NOTE | 2020-06-06 10:49 | Cardiology Consultation ---
Date of Consultation June 06, 2020 Assessment & Plan (1) Non-ischemic cardiomyopathy: Patient with diagnosis of non ischemic cardiomyopathy in 2019 with cardiac catheterization demonstrating normal coronary arteries at the time Interval improvement in LVEF now 55% by echo this admission Patient appears euvolemic. Normal BNP Chest xray without acute process Not likely CHF exacerbation (2) Elevated d-dimer: Chest CT negative for PE. Venous duplex pending (3) Dyspnea: Cardiac work up has been unremarkable for causes of her dyspnea. She has a history of abnormal PFT's demonstrating restrictive lung disease, which could be contributing. She was also diagnosed with SALAS and follows with sleep med. Given negative cardiac enzymes, improved EKG from last evaluation, improved echo with normal LVEF 55%, and no signs of CHF exacerbation with normal BNP, it appears her symptoms are non cardiac in nature. Case discussed with Dr. Freeman. Supervising Physician Co-Signing Physician Notes Patient seen and examined at the bedside. Reports slowly progressive dyspnea on exertion over several weeks to months. Noted shortness of breath when walking through her home yesterday which prompted her to report to ER for further evaluation. Notes sharp substernal chest discomfort that is nearly constant. Currently pain-free however this discomfort has been present intermittently over the past several months. Denies exertional chest heaviness or tightness. No orthopnea, PND, lower extremity edema, palpitations, lightheadedness, dizziness, syncope, or near syncope. Currently resting comfortable and asymptomatic. PE: VSS. Gen: NAD, AAOx3. Heart: Regular rhythm, normal S1-S2, no murmur, rub, gallop. Lungs: Clear bilateral, no rales, rhonchi, wheeze. Extremities: No edema. A/P: Agree with PA-C history, physical exam, assessment and plan. Patient without signs/symptoms of decompensated heart failure. ECG is abnormal, however, improved compared to most recent ECG available in the [facility] medical record. Cardiac enzymes are negative x2 sets. Review of bedside 2D transthoracic echocardiogram demonstrates improved LV systolic function with an estimated ejection fraction of 55-60%. No regional wall motion abnormalities or significant valvular pathology. Normal coronary arteries documented per c atheterization in 2019. D-dimer elevated without signs/symptoms of thrombosis. CTA of the chest negative for PE/dissection. Lower extremity venous duplex without evidence of deep venous thrombosis. Results of testing discussed with patient at length. She may be discharged home with outpatient cardiology follow-up. Patient typically follows with Dr. Loya. All questions answered to patient satisfaction History of Present Illness Reason for Consultation: SOB; Atypical chest pain Requesting Physician: Dr. Mackenzie Attending Physician: Dr. 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 nonischemic cardiomyopathy diagnosed in 2018 initially 20-25%, with interval improvement in LVEF to 52% per cardiac MRI in 05/2019, LVEF by echo 40% in October 2019 2. Normal cardiac catheterization 02/2019 3. Extensive spinal surgeries 4. Neurofibromatosis type II 5. SALAS 6. Hypertension Patient reports worsening SOB with activities over the last few weeks. Yesterday, symptoms became more severe and she felt breathless ambulating short distances in her house so she came to ER for evaluation. She notes ongoing dry cough, but feels this has not worsened. No wheezing reported. No sudden weight gain, orthopnea, PND or edema. She notes intermittent atypical chest pain, describes as sharp stabbing pains into her left shoulder but occurs randomly and not with exertion. She feels it is difficult to take a deep breath at times. She reports generalized fatigue as well over the last few months. She felt "something was wrong" and felt her symptoms were similar to prior diagnosis of cardiomyopathy, therefore she decided on ER evaluation. Since admission, she underwent lab evaluation which demonstrated elevated D.Dimer. She underwent chest CT which was negative for acute pulmonary embolus or pulm process. Incidental thyroid nodule noted. Cardiac enzymes have been negative x2. On arrival, EKG demonstrated T wave inversions in inferior and anterolateral leads which was thought to be new compared to last EKG in [facility] system. However, when compared with last EKG in [facility] in 04/2019, these T wave inversions were present and more pronounced at that time. Current EKG demonstrates improvement in T wave abnormality. Echocardiogram was also completed which demonstrated normal wall motion, LVEF 55%, no significant valvular heart disease. At time of consult, patient resting in bed comfortably. Denies SOB at rest or chest pain. Notes mild left shoulder "ache" and headache. Denies palpitations. No cough, fever, chills. No wheezing. Feels fatigued, but did not sleep much last night. Venous duplex was ordered and pending. Patient is currently NPO. Allergies Allergy/AdvReac Type Severity Reaction Status Date / Time propoxyphene Allergy Unknown ALLERGY TO Verified 06/05/20 22:39 DARVOCET- CAN TAKE APAP Home Medications Medication Instructions Recorded Confirmed Type cholecalciferol (vitamin D3) 1,000 unit PO DAILY 02/14/19 06/05/20 History [Vitamin D3] magnesium 250 mg PO DAILY 02/14/19 06/05/20 History pediatric multivitamin no.76 1 tab PO DAILY 02/14/19 06/05/20 History [Flintstones Complete] albuterol sulfate 2 puff INHALATION Q4 PRN 06/05/20 06/05/20 History ascorbic acid (vitamin C) [Vitamin 1 g PO DAILY 06/05/20 06/05/20 History C] bupropion HCl [Wellbutrin SR] 100 mg PO BID 06/05/20 06/05/20 History digoxin [Lanoxin] 125 mcg PO DAILY 06/05/20 06/05/20 History fluoxetine [Prozac] 60 mg PO DAILY 06/05/20 06/05/20 History furosemide [Lasix] 20 mg PO DAILY 06/05/20 06/05/20 History hydrocortisone acetate 25 mg IA BID PRN 06/05/20 06/05/20 History lisinopril 2.5 mg PO DAILY 06/05/20 06/05/20 History metoprolol succinate [Toprol XL] 50 mg PO DAILY 06/05/20 06/05/20 History spironolactone [Aldactone] 12.5 mg PO DAILY 06/05/20 06/05/20 History triamcinolone acetonide 1 applic TOPICAL BID PRN 06/05/20 06/05/20 History Patient History Medical History (Updated 06/06/20 @ 11:16 by Debbie Wilkins PA-C) Contusion of multiple sites Fall History of diet controlled gestational diabetes mellitus (GDM) Hypertension Kidney stone Lumbar strain Pneumonia Family History Other No significant family history Social History Smoking Status: Never smoker Second Hand Exposure: No; Hx Alcohol Use: Yes Alcohol type: beer and wine Hx Substance Use: No Preferred Language: French Communication Ability: Effective 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 Beliefs That Will Affect Care: None marital status: Single Current Living Situation: Family current occupational status: employed current occupation: [employer] Other Information That Helps Us Care for You: No Feels Safe at Home: Yes Safety Concerns: Feels Safe At This Time Physical Exam Constitutional: WD/WN, vitals as above well nourished; no acute distress Eyes: PERRL, conjunctivae normal, anicteric sclerae Respiratory: normal respiratory effort, lungs clear to auscultation Cardiovascular: RRR, no murmur, no edema Gastrointestinal (Abdomen): normal bowel sounds, soft, nontender, no hepatosplenomegaly Musculoskeletal: no cyanosis or clubbing, extremities motor strength 5/5 Neurologic: PERRL, EOMI, accommodation nl, no face palsy, no dysarthria Psychiatric: A+Ox3, euthymic affect Results & Data ([facility]) Vital Signs (Past 12 Hours) Vital Signs Temp Pulse Pulse Resp BP BP Pulse Ox 06/06/20 09:00 68 18 112/68 99 06/06/20 07:47 36.7 C 62 16 109/67 97 06/06/20 07:00 64 06/06/20 03:18 37.0 C 70 19 101/59 L 94 06/06/20 03:00 64 14 104/66 96 06/06/20 02:30 62 16 111/54 L 95 06/06/20 02:20 67 69 15 111/63 111/63 97 06/06/20 02:01 68 17 97 06/06/20 01:01 63 17 96 06/05/20 23:30 79 22 129/52 L 98 06/05/20 23:00 69 15 118/73 98 Pulse Ox 06/06/20 09:00 06/06/20 07:47 97 06/06/20 07:00 06/06/20 03:18 06/06/20 03:00 06/06/20 02:30 06/06/20 02:20 06/06/20 02:01 06/06/20 01:01 06/05/20 23:30 06/05/20 23:00 Laboratory Results 06/06/20 06/06/20 06/05/20 Range/Units 05:44 05:44 21:29 WBC 7.57 (4.8-10.8) K/uL RBC 4.39 (4.2-5.4) M/uL Hgb 13.0 (12.0-16.0) g/dL Hct 39.9 (37-47) % MCV 90.9 (80-100) fL MCH 29.6 (25-34) pg MCHC 32.6 (32-36) g/dL RDW Std Deviation 42.2 (36.4-46.3) fL RDW Coeff of Yaz 12.7 (11.5-14.5) % Plt Count 310 (130-400) K/uL MPV 10.4 (7.4-10.4) fL Immature Gran % (Auto) 0.1 % Neut % (Auto) 53.8 % Lymph % (Auto) 33.2 % [place] % (Auto) 9.4 % Eos % (Auto) 3.2 % Baso % (Auto) 0.3 % Neut # (Auto) 4.08 (1.4-6.5) K/uL Lymph # (Auto) 2.51 (1.2-3.4) K/uL [place] # (Auto) 0.71 H (0.11-0.59) K/uL Eos # (Auto) 0.24 (0-0.5) K/uL Baso # (Auto) 0.02 (0-0.2) K/uL Immature Gran # (Auto) 0.01 (0.00-0.02) K/uL PT 10.7 INR 1.0 APTT 31.9 H PTT Ratio 1.1 D-Dimer 1840 H* Sodium 138 (136-145) mmol/L Potassium 3.9 (3.5-5.1) mmol/L Chloride 107 (98-107) mmol/L Carbon Dioxide 26 (21-32) mmol/L Anion Gap 5.0 (3-11) BUN 13 (7-18) mg/dl Creatinine 0.74 (0.6-1.2) mg/dl Est Cr Clr Drug Dosing 101.9 ml/min Est GFR ( Amer) 120.0 Est GFR (Non-Af Amer) 103.5 BUN/Creatinine Ratio 17.0 (10-20) Glucose 90 (70-99) mg/dl Calcium 8.7 (8.5-10.1) mg/dl Magnesium 2.4 (1.8-2.4) mg/dl Total Bilirubin (0.2-1) mg/dl AST (15-37) U/L ALT (12-78) U/L Alkaline Phosphatase (45-117) U/L Troponin I < 0.015 (0-0.045) ng/ml NT-Pro-B Natriuret Pep (0-450) pg/ml Total Protein (6.4-8.2) gm/dl Albumin (3.4-5.0) gm/dl Globulin (2.5-4.0) gm/dl Albumin/Globulin Ratio (0.9-2) Lipase (73-393) U/L COVID-19 Eval Order SARS-CoV-2, RNA, NAAT (NEGATIVE) 06/05/20 06/05/20 06/05/20 Range/Units 21:29 20:10 20:10 WBC (4.8-10.8) K/uL RBC (4.2-5.4) M/uL Hgb (12.0-16.0) g/dL Hct (37-47) % MCV (80-100) fL MCH (25-34) pg MCHC (32-36) g/dL RDW Std Deviation (36.4-46.3) fL RDW Coeff of Yaz (11.5-14.5) % Plt Count (130-400) K/uL MPV (7.4-10.4) fL Immature Gran % (Auto) % Neut % (Auto) % Lymph % (Auto) % [place] % (Auto) % Eos % (Auto) % Baso % (Auto) % Neut # (Auto) (1.4-6.5) K/uL Lymph # (Auto) (1.2-3.4) K/uL [place] # (Auto) (0.11-0.59) K/uL Eos # (Auto) (0-0.5) K/uL Baso # (Auto) (0-0.2) K/uL Immature Gran # (Auto) (0.00-0.02) K/uL PT INR APTT PTT Ratio D-Dimer Sodium 139 (136-145) mmol/L Potassium 3.7 (3.5-5.1) mmol/L Chloride 106 (98-107) mmol/L Carbon Dioxide 26 (21-32) mmol/L Anion Gap 7.0 (3-11) BUN 13 (7-18) mg/dl Creatinine 0.71 (0.6-1.2) mg/dl Est Cr Clr Drug Dosing 106.2 ml/min Est GFR ( Amer) 126.1 Est GFR (Non-Af Amer) 108.8 BUN/Creatinine Ratio 17.9 (10-20) Glucose 93 (70-99) mg/dl Calcium 8.9 (8.5-10.1) mg/dl Magnesium (1.8-2.4) mg/dl Total Bilirubin 0.2 (0.2-1) mg/dl AST 12 L (15-37) U/L ALT 22 (12-78) U/L Alkaline Phosphatase 98 (45-117) U/L Troponin I < 0.015 (0-0.045) ng/ml NT-Pro-B Natriuret Pep 27 (0-450) pg/ml Total Protein 7.7 (6.4-8.2) gm/dl Albumin 3.7 (3.4-5.0) gm/dl Globulin 4.0 (2.5-4.0) gm/dl Albumin/Globulin Ratio 0.9 (0.9-2) Lipase 120 (73-393) U/L COVID-19 Eval [facility] SARS-CoV-2, RNA, NAAT NEGATIVE (NEGATIVE) 06/05/20 06/05/20 Range/Units 20:10 20:10 WBC 8.86 (4.8-10.8) K/uL RBC 4.37 (4.2-5.4) M/uL Hgb 13.2 (12.0-16.0) g/dL Hct 39.4 (37-47) % MCV 90.2 (80-100) fL MCH 30.2 (25-34) pg MCHC 33.5 (32-36) g/dL RDW Std Deviation 42.4 (36.4-46.3) fL RDW Coeff of Yaz 12.9 (11.5-14.5) % Plt Count 340 (130-400) K/uL MPV 10.9 H (7.4-10.4) fL Immature Gran % (Auto) 0.2 % Neut % (Auto) 57.1 % Lymph % (Auto) 32.4 % [place] % (Auto) 7.2 % Eos % (Auto) 2.9 % Baso % (Auto) 0.2 % Neut # (Auto) 5.05 (1.4-6.5) K/uL Lymph # (Auto) 2.87 (1.2-3.4) K/uL [place] # (Auto) 0.64 H (0.11-0.59) K/uL Eos # (Auto) 0.26 (0-0.5) K/uL Baso # (Auto) 0.02 (0-0.2) K/uL Immature Gran # (Auto) 0.02 (0.00-0.02) K/uL PT Cancelled INR Cancelled APTT Cancelled PTT Ratio Cancelled D-Dimer Cancelled Sodium (136-145) mmol/L Potassium (3.5-5.1) mmol/L Chloride (98-107) mmol/L Carbon Dioxide (21-32) mmol/L Anion Gap (3-11) BUN (7-18) mg/dl Creatinine (0.6-1.2) mg/dl Est Cr Clr Drug Dosing ml/min Est GFR ( Amer) Est GFR (Non-Af Amer) BUN/Creatinine Ratio (10-20) Glucose (70-99) mg/dl Calcium (8.5-10.1) mg/dl Magnesium (1.8-2.4) mg/dl Total Bilirubin (0.2-1) mg/dl AST (15-37) U/L ALT (12-78) U/L Alkaline Phosphatase (45-117) U/L Troponin I (0-0.045) ng/ml NT-Pro-B Natriuret Pep (0-450) pg/ml Total Protein (6.4-8.2) gm/dl Albumin (3.4-5.0) gm/dl Globulin (2.5-4.0) gm/dl Albumin/Globulin Ratio (0.9-2) Lipase (73-393) U/L COVID-19 Eval Order SARS-CoV-2, RNA, NAAT (NEGATIVE) 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 The LV wall thickness is normal. The left ventricular cavity is moderately dilated (LVED volume 71-80 ml/m^2). There is moderate diffuse left ventricular hypokinesis. Left ventricular ejection fraction is 40-45%. The left ventricular diastolic function is mildly abnormal (grade I). There is no evidence of pulmonary hypertension. Compared to previous study dated 02/23/2019, left ventricular systolic function is improved. Cardiac MRI 05/2019 Interpretation Summary 1. Cardiac MRI findings of mildly reduced left ventricular systolic dysfunction without discrete abnormalties on late gadolinium imaging. Findings suggestive of prior myocarditis or an infiltrative process are not seen. An idiopathic process may be the cause of the mild cardiomyopathy. 2. The left ventricular cavity size is normal.The LV wall thickness is normal.The left ventricular systolic function is mildly reduced.The calculated LV ejection fraction is 52%. 3. There is no myocardial infarction noted on late gadolinium enhanced imaging. All the myocardial segments are viable. 4. The right ventricle is normal in size.The right ventricular systolic function is normal.The calculated RV ejection fraction is 58%.
--- NOTE | 2020-06-06 12:19 | Ultrasound Report ---
ULTRASOUND BILATERAL LOWER EXTREMITY VENOUS CLINICAL HISTORY: Elevated d-dimer. COMPARISON STUDY: Bilateral lower extremity venous ultrasound dated 02/24/2019. TECHNIQUE: Real-time, grayscale, and color Doppler sonography of the deep veins of the right and left lower extremity was performed from the inguinal crease to the calf. Compression and augmentation wer e utilized. FINDINGS: There is no sonographic evidence of deep venous thrombosis identified in the right or left lower extremity. The common femoral, superficial femoral, and popliteal veins are patent and normally compressible bilaterally. The greater saphenous vein and the profunda femoris vein at the junction w ith the common femoral vein are clear in both legs. The visualized calf veins are patent bilaterally. IMPRESSION: There is no sonographic evidence of deep venous thrombosis identified in the right or lef t lower extremity. ACT 112: Negative or not required by law. Electronically signed by: Broderick Ackerman M.D. 06/06/2020 12:18 PM
--- NOTE | 2020-06-06 12:46 | Electrocardiogram Report ---
Test Reason : Blood Pressure : / mmHG Vent. Rate : 060 BPM Atrial Rate : 060 BPM P-R Int : 150 ms QRS Dur : 082 ms QT Int : 414 ms P-R-T Axes : 037 010 -34 degrees QTc Int : 414 ms Normal sinus rhythm T wave abnormality, consider inferior ischemia T wave abnormality, consider anterolateral ischemia Abnormal ECG When compared with ECG of 24-FEB-2019 09:55, Vent. rate has decreased BY 40 BPM T wave inversion now evident in Inferior leads T wave inversion now evident in Anterolateral leads QT has shortened Confirmed by Carlos Goncalves ([id number]) on 06/06/2020 12:46:31 PM Referred By: REFERRED SELF Confirmed By:Wander Goncalves
[2020-06-06] MEDS ORDERED: FAMOTIDINE 10 MG TABLET PO PRN (13:18)
--- NOTE | 2020-06-06 13:22 | Hospitalist Progress Note ---
Date of Service June 06, 2020 Assessment & Plan (1) Dyspnea: Patient is a 39 yr female with nonischemic cardiomyopathy, presents with chest pain, shortness of breath. Chest pain, dyspnea Elevated D-dimer H/O nonischemic cardiomyopathy H/O abnormal PFTs--demonstrating restrictive lung disease in the past H/O SALAS S/P Cardiac Cath in 2019: Coronary artery disease at the time. --CTA:There is no evidence of pulmonary embolus in the main, lobar, or segmental pulmonary arteries. There is no airspace consolidation or pleural effusion. There is a 10 mm low-attenuation nodule in the left lobe of the thyroid. This is new from 02/14/2019. Follow-up with a nonemergent thyroid ultrasound is recommended for further assessment. --Venous Doppler:There is no sonographic evidence of deep venous thrombosis identified in the right or left lower extremity. --Troponin: Negative --ECHO: EF 55 to 60%. Grade 1 diastolic dysfunction. No significant valvular pathology. Left ventricular wall motion is normal. --EKG: T wave changes anterolateral, inferior leads. --No wheezing on Exam --Appreciate Cardiology Input --May need further work-up with pulmonology as outpatient -Continue digoxin, furosemide, lisinopril, Aldactone, metoprolol -Also on Albuterol PRN Hypertension. BP Stable Continue lisinopril, Metoprolol Depression. Continue Wellbutrin, Prozac GERD On Pepcid DVT Px: SCDs for now. Code Status Full Code Disposition Expected discharge home when medically stable. Admission and Anticipated Discharge Date Admission Date: June 06, 2020 Subjective Patient is seen and examined medicine Chest pain, dyspnea resolved Currently denies any dizziness, wheezing, cough, nausea, vomiting, abdominal pain Offers no other complaints Review of Systems Review of Systems: All systems reviewed & are unremarkable except as noted in HPI & below Physical Exam Physical Exam: Physical Exam: Vitals signs as noted above General Appearance:Moderately built and nourished, no apparent distress Head: normocephalic, Atraumatic Eyes: normal inspection, EOMI Neck: supple, Trachea midline Respiratory/Chest: Normal breath sounds, CTA Cardiovascular: S1, S2, No murmur Abdomen/GI:Soft, Non tender, Bowel sounds present Back:Well healed surgical scar on neck, upper thorax Extremities/Musculoskelatal:normal inspection, no edema Neurologic/Psych:AAOX3, grossly no focal neurological deficits Skin: normal color, warm, + tattoos Results & Data Results & Data ([facility]) Vital Signs (Past 12 Hours) Vital Signs Temp Pulse Pulse Resp BP BP Pulse Ox 06/06/20 09:00 68 18 112/68 99 06/06/20 07:47 36.7 C 62 16 109/67 97 06/06/20 07:00 64 06/06/20 03:18 37.0 C 70 19 101/59 L 94 06/06/20 03:00 64 14 104/66 96 06/06/20 02:30 62 16 111/54 L 95 06/06/20 02:20 67 69 15 111/63 111/63 97 06/06/20 02:01 68 17 97 Pulse Ox 06/06/20 09:00 06/06/20 07:47 97 06/06/20 07:00 06/06/20 03:18 06/06/20 03:00 06/06/20 02:30 06/06/20 02:20 06/06/20 02:01 Laboratory Results Short CBC 06/05/20 06/06/20 Range/Units 20:10 05:44 WBC 8.86 7.57 (4.8-10.8) K/uL Hgb 13.2 13.0 (12.0-16.0) g/dL Hct 39.4 39.9 (37-47) % Plt Count 340 310 (130-400) K/uL BMP 06/05/20 06/06/20 21:29 05:44 Sodium 139 138 Potassium 3.7 3.9 Chloride 106 107 Carbon Dioxide 26 26 BUN 13 13 Creatinine 0.71 0.74 Glucose 93 90 Calcium 8.9 8.7 Cardiac Enzymes 06/05/20 06/06/20 Range/Units 21:29 05:44 Troponin I < 0.015 < 0.015 (0-0.045) ng/ml Liver Function 06/05/20 Range/Units 21:29 Total Bilirubin 0.2 (0.2-1) mg/dl AST 12 L (15-37) U/L ALT 22 (12-78) U/L Alkaline Phosphatase 98 (45-117) U/L Albumin 3.7 (3.4-5.0) gm/dl
[2020-06-06] MEDS ORDERED: DIGOXIN 0.125 MG TAB PO SCH (16:00)
--- NOTE | 2020-06-06 16:29 | Discharge Summary ---
Date of Service June 06, 2020 Admission HPI Per Admitting Provider CHIEF COMPLAINT: Chest pain and shortness of breath. HISTORY OF PRESENT ILLNESS: This is a 39-year-old female with past medical history significant for nonischemic cardiomyopathy, hypertension, scoliosis, neurofibromatosis, kyphosis, osteoarthritis, pseudoarthrosis of cervical spine, retinal edema, history of spinal fusion, history of breast cancer in sister, major depression, presents with chest pain and shortness of breath. The patient's chest pain is going for a long time, it is on and off, it is on the left side of the chest, sometimes will radiate into the shoulder, pressure like feeling,5/10 severity. She was diagnosed with nonischemic cardiomyopathy in 02/2019 with EF of 20-25% and cardiac cath was fine and she had a cardiac MRI done in [place], later which showed near normalization EF with 52% EF and she had another echocardiogram done in 10/2019 which shows EF of 40-45%, left ventricle is moderately dilated.Last few days again she is getting short of breath, walking few steps making her short of breath and she felt like similar to prior to diagnosis of cardiomyopathy which prompted her to come to the ER. She has some mild cough. Denies any fever, chills. No nausea, no vomiting, no abdominal pain. Constipated. Denies any blood in stool or black stools. Normal bladder movements. No loss of sense of smell or taste. No fever, no chills. Currently, no headache, no blurred vision, no earache, no runny nose, no sore throat. Appetite is okay. Admission Exam Per Admitting Provider PHYSICAL EXAMINATION: GENERAL: The patient is of moderate built, not in acute distress. VITAL SIGNS: Temperature 36.5, pulse 79, respiratory rate 22, blood pressure 129/62, oxygen 98% on room air. HEENT: Pupils equal, round, reactive to light. Oral mucosa moist. NECK: No neck masses seen. No JVD seen. CARDIOVASCULAR: S1, S2 heard, regular rate and rhythm, no murmur, no gallop. RESPIRATORY SYSTEM: Normal AP diameter. No accessory muscle use. No wheezing, no crackles. ABDOMEN: Soft, bowel sounds present, nontender. No distention. CENTRAL NERVOUS SYSTEM: Cranial nerves II-XII grossly intact. Nonfocal. EXTREMITIES: No edema, no erythema. Principal Diagnosis Atypical Chest Pain Thyroid Nodule Discharge Data Allergies Allergy/AdvReac Type Severity Reaction Status Date / Time propoxyphene Allergy Unknown ALLERGY TO Verified 06/05/20 22:39 DARVOCET- CAN TAKE APAP Consultations 06/05/20 22:55 ED Decision to Admit Stat 06/06/20 08:00 Consult Cardiology Routine Procedures Performed CTA: 1. There is no evidence of pulmonary embolus in the main, lobar, or segmental pulmonary arteries. 2. There is no airspace consolidation or pleural effusion. 3. There is a 10 mm low-attenuation nodule in the left lobe of the thyroid. This is new from 02/14/2019. Follow-up with a nonemergent thyroid ultrasound is recommended for further assessment. Venous Doppler: There is no sonographic evidence of deep venous thrombosis identified in the right or left lower extremity. Ordered Studies 06/05/20 21:56 CT angio chest PE protocol Urgent 06/06/20 11:00 US venous doppler LE Routine Hospital Course (1) Dyspnea: Patient is a 39 yr female with nonischemic cardiomyopathy, presents with chest pain, shortness of breath. Chest pain, dyspnea Elevated D-dimer H/O nonischemic cardiomyopathy H/O abnormal PFTs--demonstrating restrictive lung disease in the past H/O SALAS S/P Cardiac Cath in 2019: Coronary artery disease at the time. --CTA:There is no evidence of pulmonary embolus in the main, lobar, or segmental pulmonary arteries. There is no airspace consolidation or pleural effusion. There is a 10 mm low-attenuation nodule in the left lobe of the thyroid. This is new from 02/14/2019. Follow-up with a nonemergent thyroid ultrasound is recommended for further assessment. --Venous Doppler:There is no sonographic evidence of deep venous thrombosis identified in the right or left lower extremity. --Troponin: Negative --ECHO: EF 55 to 60%. Grade 1 diastolic dysfunction. No significant valvular pathology. Left ventricular wall motion is normal. --EKG: T wave changes anterolateral, inferior leads. --No wheezing on Exam --Appreciate Cardiology Input --May need further work-up with pulmonology as outpatient -Continue digoxin, furosemide, lisinopril, Aldactone, metoprolol -Also on Albuterol PRN Hypertension. BP Stable Continue lisinopril, Metoprolol Depression. Continue Wellbutrin, Prozac GERD On Pepcid DVT Px: SCDs for now. Code Status Full Code Disposition Expected discharge home when medically stable. Total Time Total Time Spent Total Time Spent (In Minutes): 32 minutes Total Time Includes: Examination of the Patient, Discharge Planning, Medication Reconciliation, Communication With Other Providers and Other Discharge Plan Discharge Items Patient Disposition: Home - Self-Care Reason For Visit: SOB Discharge Diagnosis: Atypical Chest Pain Thyroid Nodule Activity: Per Instructions section Exercise/Sports: Gradually increase as tolerated Non-emergency contact: Primary Care Provider and Skates Operator Call non-emergency contact if: you have any medication questions, your symptoms worsen, your pain is not controlled, your pain is worsening, your pain is unusual for you, your pain is concerning for you and you have a fever Follow-up/Referrals: Vika Daniels MD [Primary Care Provider] - Diet: Heart Healthy Addtl Attending Provider Instructions: Follow up with your PCP in 1 week Follow up with your Skates Operator in 2 weeks You were noted to have a thyroid nodule incidentally on CT scan. Get thyroid ultrasound as outpatient and follow-up with your physician for further recommendations. Seek immediate medical attention if your symptoms reoccur or worsen Pending Studies at Discharge: No Stand-Alone Forms: My [employer], Smoking Cessation Medications and DC Order Prescriptions: Continued magnesium 250 mg Tablet 250 mg PO DAILY RF: 0 cholecalciferol (vitamin D3) [Vitamin D3] 1,000 unit Tablet,Chewable 1,000 unit PO DAILY RF: 0 Flintstones Complete Tablet,Chewable 1 tab PO DAILY RF: 0 ascorbic acid (vitamin C) [Vitamin C] 1,000 mg Tablet 1 g PO DAILY RF: 0 spironolactone [Aldactone] 25 mg tablet 12.5 mg PO DAILY RF: 0 bupropion HCl [Wellbutrin SR] 100 mg tablet sustained-release 12 hr 100 mg PO BID RF: 0 hydrocortisone acetate 25 mg Suppository 25 mg CO BID PRN (Reason: Hemorrhoids) RF: 0 digoxin [Lanoxin] 125 mcg (0.125 mg) tablet 125 mcg PO DAILY RF: 0 furosemide [Lasix] 20 mg tablet 20 mg PO DAILY RF: 0 metoprolol succinate [Toprol XL] 25 mg tablet extended release 24 hr 50 mg PO DAILY RF: 0 triamcinolone acetonide 0.1 % Lotion 1 applic TOPICAL BID PRN (Reason: break outs) RF: 0 albuterol sulfate 90 mcg/actuation HFA aerosol inhaler 2 puff INHALATION Q4 PRN (Reason: Shortness Of Breath Or Wheezing) RF: 0 fluoxetine [Prozac] 20 mg capsule 60 mg PO DAILY RF: 0 lisinopril 2.5 mg tablet 2.5 mg PO DAILY RF: 0 Discharge Orders: Discharge Order (Routine); Ordered 06/06/20 Ordered By: Sean Elder Admission Data Admit Date/Time: 06/06/20 01:36 Attending Provider: Sean Elder Admit Provider: Andrez Mackenzie Primary Care Provider: Vika Daniels Other Providers: Andrez Mackenzie ; Kulwinder Loya ; Hebert Cordero ; Puma Escalante ; Olu Freeman ; Ankush Amos ; Mike Solorzano ; Debbie Bejarano ; Ghada Mueller ; Montrell Suggs
[2020-06-06 17:26] VITALS: O2SAT 98
[2020-06-06 17:30] VITALS: BP 100/71; PULSE 62
== END 2020-06-06 17:59 | disposition home or self-care (01) ==
LOC: EDINP 18:08 → ED 18:08 → EDINP 06-06 01:36